=== PATIENT | male | born 1980 | race African-American/Black ===

== ENCOUNTER 2016-10-21 09:48 | Emergency (ER) | payer MEDICAID ==
[~2016-10-21] VITALS: Ht 180.3 cm; Wt 92.5 kg
[~2016-10-21 09:48] MED LIST: BACTRIM 400-801 TA1 PO; DERMACORT1 GM EXT; ORUDIS75 M1 PO
== END 2016-10-21 10:49 | disposition home or self-care (01) ==
LOC: CED 09:48
DX: N49.2 Inflammatory disorders of scrotum (principal); Z79.899 Other long term (current) drug therapy
CPT/HCPCS: 96374; 99282